=== PATIENT | female | born 1950 | race Two or more races ===

== ENCOUNTER → 2018-12-11 | Outpatient (CLI) | payer OTHER ==
[~2018-12-11] MED LIST: SYNTHROID125 MCG PO; XANAX0.25 MG PO
== END | disposition home or self-care (01) ==
LOC: NUCLEAR 14:30
DX: M81.0 Age-related osteoporosis without current pathological fracture (principal)

== ENCOUNTER 2020-01-29 08:56 | Outpatient (CLI) | payer OTHER | END 2020-01-29 08:57 | disposition home or self-care (01) | LOC: MAMO-SONO 08:56 | PROVIDERS: ATTEND Internal Medicine Endocrinology, Diabetes & Metabolism | DX: Z12.31 Encounter for screening mammogram for malignant neoplasm of breast (principal); N64.4 Mastodynia; K76.1 Chronic passive congestion of liver; I11.0 Hypertensive heart disease with heart failure; E04.8 Other specified nontoxic goiter ==

== ENCOUNTER 2020-05-13 20:37 | Emergency (ER) | payer OTHER ==
[~2020-05-13] VITALS: Ht 167.6 cm; Wt 68.0 kg
[2020-05-13] MEDS ORDERED: TOPROL XL25 M1 PO (20:45)
== END 2020-05-13 22:07 | disposition home or self-care (01) ==
LOC: ER 20:37
DX: F41.8 Other specified anxiety disorders (principal)

== ENCOUNTER → 2021-06-30 | Outpatient (CLI) | payer OTHER ==
[~2021-06-30] MED LIST changes: +TOPROL XL25 M1 PO
== END | disposition home or self-care (01) ==
LOC: MAMO-SONO 09:15
PROVIDERS: ATTEND Student in an Organized Health Care Education/Training Program
DX: R92.1 Mammographic calcification found on diagnostic imaging of breast (principal); N60.11 Diffuse cystic mastopathy of right breast; N60.12 Diffuse cystic mastopathy of left breast; Z12.31 Encounter for screening mammogram for malignant neoplasm of breast

== ENCOUNTER 2023-10-26 12:43 | Outpatient (CLI) | payer OTHER | END 2023-10-26 12:45 | disposition home or self-care (01) | LOC: NUCLEAR 12:43 | PROVIDERS: ATTEND Internal Medicine Rheumatology | DX: M81.0 Age-related osteoporosis without current pathological fracture (principal); M81.8 Other osteoporosis without current pathological fracture ==